=== PATIENT | female | born 1940 | race Caucasian/White ===

== ENCOUNTER 2016-06-03 04:06 | Emergency (ER) | payer MEDICARE, OTHER ==
[2016-06-03] MEDS ORDERED: NITROGLYCERIN/D5W 0 MG/0 ML RTUINJ IV ONE (04:13)
[2016-06-03] MEDS ORDERED: ETOMIDATE INJ/PF 20 MG/10 ML SDV IV ONE ×2 (04:14→05:22)
[2016-06-03] MEDS ORDERED: MIDAZOLAM 2 MG/2 ML INJ IV ONE (04:22)
[2016-06-03] MEDS ORDERED: MIDAZOLAM 2 MG/2 ML INJ ONE (04:25)
[2016-06-03] MEDS ORDERED: MIDAZOLAM HCL 100 ML IV ONE (04:26)
[2016-06-03 04:48] LABS: ABSOLUTE BASOPHILS # (AUTO) 0.1 10^3/uL (0.0-0.2); BASOPHILS % (AUTO) 0.6 % (0-2); EOSINOPHILS % (AUTO) 0.2 % (0-6); HEMATOCRIT 43.9 % (36.0-47.0); HEMOGLOBIN 14.1 g/dL (12.0-15.5); HGB HCT DIFFERENCE -1.6; LYMPHOCYTES % (AUTO) 26.2 % (13-45); MEAN CORPUSCULAR HEMOGLOBIN 29.2 pg (27.0-33.4); MEAN CORPUSCULAR HGB CONC 32.2 g/dL (32.0-36.0); MEAN CORPUSCULAR VOLUME 91 fl (80-97); MONOCYTES % (AUTO) 10.2 % (3-13); RED BLOOD COUNT 4.84 10^6/uL (3.72-5.28); RED CELL DISTRIBUTION WIDTH 14.9 % (11.5-14.0); SEGMENTED NEUTROPHILS % (AUTO) 62.8 % (42-78); WHITE BLOOD COUNT 19.2 10^3/uL (4.0-10.5)
[2016-06-03] MEDS ORDERED: ACETAMINOPHEN 650 MG SUPP.RECT PR ONE (04:54)
--- NOTE | 2016-06-03 04:55 | ER Document Report ---
ED General <CHARU MCCONNELL - Last Filed: 06/03/16 07:19> <SHYLA HOPSON - Last Filed: 06/03/16 13:06> - General Chief Complaint: Respiratory Distress Stated Complaint: RESPIRATORY DISTRESS Notes: Patient is a 75-year-old female who is brought in by the ambulance for severe respiratory distress. She is brought in on Cipro but admits. They said when they arrived at the house patient was kneeling against the bed and breathing very heavily. Patient is in severe respiratory distress and therefore cannot give much history. The mother said that the was at the house but was also not a good historian. (CHARU MCCONNELL) - Related Data Allergies/Adverse Reactions: Sulfa (Sulfonamide Antibiotics) Allergy (Verified 08/27/13 15:45) Past Medical History - Social History Smoking Status: Never Smoker Frequency of alcohol use: None Drug Abuse: None Family History: Reviewed & Not Pertinent - Past Medical History Cardiac Medical History: Reports: Hx Coronary Artery Disease, Hx Heart Attack, Hx Hypercholesterolemia, Hx Hypertension Denies: Hx DVT Endocrine Medical History: Reports: Hx Diabetes Mellitus Type 1, Hx Diabetes Mellitus Type 2 GI Medical History: Reports: Hx Gastroesophageal Reflux Disease Musculoskeltal Medical History: Reports Hx Arthritis Psychiatric Medical History: Reports: Hx Depression Past Surgical History: Reports: Hx Cardiac Catheterization - stents x2, Hx Orthopedic Surgery - right knee replacement - Immunizations Hx Diphtheria, Pertussis, Tetanus Vaccination: Yes Hx Pneumococcal Vaccination: 02/07/12 <CHARU MCCONNELL - Last Filed: 06/03/16 07:19> Review of Systems - Review of Systems -: Yes ROS unobtainable due to patient's medical condition - Patient unable to give history due to severe respiratory distress. <CHARU MCCONNELL - Last Filed: 06/03/16 07:19> Physical Exam <CHARU MCCONNELL - Last Filed: 06/03/16 07:19> <SHYLA HOPSON - Last Filed: 06/03/16 13:06> - Vital signs Vitals: Resp BP Pulse Ox 42 H 133/87 H 87 L 06/03/16 04:08 06/03/16 04:08 06/03/16 04:08 - Notes Notes: General Appearance: Well nourished, alert, cooperative, severe acute distress, no obvious discomfort. Very fatigued appearing. Vitals: reviewed, See vital signs table. Head: no swelling or tenderness to the head Eyes: PERRL, EOMI, Conjuctiva clear Mouth: No decreasd moisture Neck: Supple, no neck tenderness Lungs: Diffuse rales. Difficulty breathing. Accessory muscle use. Heart: Tachycardic rate, Regular rythm, No murmur, no rub Abdomen: Normal BS, soft, No rigidity, No abdominal tenderness, No guarding, no rebound, no abdominal masses, no organomegaly Extremities: strength 5/5 in all extremities, good pulses in all extremities, no swelling or tenderness in the extremities, no edema. Skin: warm, dry, appropriate color, no rash Neuro: Patient is very fatigued. Unable to perform a full neuro exam. She is able to move all extremities but is very weak in doing so. (CHARU MCCONNELL) Course - Laboratory Result Diagrams: 06/03/16 04:30 06/03/16 04:30 <CHARU MCCONNELL - Last Filed: 06/03/16 07:19> - Laboratory Result Diagrams: 06/03/16 07:50 06/03/16 10:55 <SHYLA HOPSON - Last Filed: 06/03/16 13:06> - Re-evaluation Re-evalutation: 06/03/16 05:04 Daughter is now arrived. Daughter informs me that the patient has not been having fevers at home. She says that only thing that she's notices that she complains of occasional jaw pain neck pain had pain and facial pain. Daughter says her headache, facial pain, jaw pain, neck pain has been ongoing for approximately one month. She is concerned that could be cardiac related being that she has a history of stents. She says despite this the patient has denied any chest pain to her. She has not been confused or altered. She says she was doing well until tonight when she started having difficulty breathing. Daughter has nothing else to add at this time. (CHARU MCCONNELL) 06/03/16 10:08 Patient signed out Patient's laboratory studies returned showing elevated blood glucose decreased bicarbonate with initial VBG showing some slight acidosis probably early DKA. Patient was to be having a non-STEMI with with sepsis due to urinary tract infection. Also with fluid overload. Patient has been stable on the ventilator. I did discuss with Dr. Dunn at [facility] per family request recommended patient start on a bicarbonate drip given a dose of Zosyn and also started on insulin drip. Due to the multiple drip medications patient will also have a central line placed by myself. Consent signed the family. Currently waiting on [facility] to give bed assignment update 06/03/16 11:02 Central line placed without difficulty 06/03/16 11:02 Repeat EKG still shows left bundle branch block with no sgarbossa criteria rate of 93 06/03/16 13:04 [facility] informed that they would not have a bed available for the next 12- 24 hours. Did discuss with [facility] as well however there ICU was full. Then at the family's discretion I did call [facility] and discussed with dr. herman. Patient was accepted in transfer. Patient still remains stable but critical condition on the ventilator. Patient will be airlifted tertiary care facility ( [facility]) - Vital Signs Vital signs: Temp Pulse Resp BP Pulse Ox 98.9 F 16 106/64 100 06/03/16 12:41 06/03/16 12:41 06/03/16 12:41 06/03/16 12:41 - Laboratory Laboratory results interpreted by me: 06/03/16 06/03/16 06/03/16 04:30 04:30 04:40 WBC 19.2 H RDW 14.9 H Seg Neutrophils % Lymphocytes % Absolute Neutrophils 12.0 H Absolute Lymphocytes 5.0 H Absolute Monocytes 2.0 H VBG pH 7.23 L Sodium Potassium Chloride Carbon Dioxide BUN Est GFR ( Amer) Est GFR (Non-Af Amer) Glucose POC Glucose Lactic Acid Direct Bilirubin AST ALT Creatine Kinase CK-MB (CK-2) NT-Pro-B Natriuret Pep Total Protein Albumin Urine Protein 100 H Urine Glucose (UA) >=500 H Urine Blood MODERATE H Ur Leukocyte Esterase MODERATE H 06/03/16 06/03/16 06/03/16 05:35 05:35 07:50 WBC RDW Seg Neutrophils % Lymphocytes % Absolute Neutrophils Absolute Lymphocytes Absolute Monocytes VBG pH Sodium 129.3 L Potassium 5.6 H Chloride 94 L Carbon Dioxide 20 L BUN 26 H Est GFR ( Amer) 55 L Est GFR (Non-Af Amer) 46 L Glucose 611 H* POC Glucose Lactic Acid 4.3 H Direct Bilirubin 0.6 H AST 142 H ALT 66 H Creatine Kinase 581 H CK-MB (CK-2) 10.10 H NT-Pro-B Natriuret Pep Total Protein 5.7 L Albumin 3.2 L Urine Protein Urine Glucose (UA) Urine Blood Ur Leukocyte Esterase 06/03/16 06/03/16 06/03/16 07:50 07:50 08:50 WBC 14.2 H RDW 14.5 H Seg Neutrophils % 80.8 H Lymphocytes % 8.3 L Absolute Neutrophils 11.5 H Absolute Lymphocytes Absolute Monocytes 1.5 H VBG pH Sodium Potassium Chloride Carbon Dioxide BUN Est GFR ( Amer) Est GFR (Non-Af Amer) Glucose POC Glucose > 550 H* Lactic Acid Direct Bilirubin AST ALT Creatine Kinase CK-MB (CK-2) NT-Pro-B Natriuret Pep 7520 H Total Protein Albumin Urine Protein Urine Glucose (UA) Urine Blood Ur Leukocyte Esterase 06/03/16 10:55 WBC RDW Seg Neutrophils % Lymphocytes % Absolute Neutrophils Absolute Lymphocytes Absolute Monocytes VBG pH Sodium 132.8 L Potassium 5.1 H Chloride 94 L Carbon Dioxide BUN 28 H Est GFR ( Amer) 56 L Est GFR (Non-Af Amer) 46 L Glucose 563 H* POC Glucose Lactic Acid Direct Bilirubin AST ALT Creatine Kinase CK-MB (CK-2) NT-Pro-B Natriuret Pep Total Protein Albumin Urine Protein Urine Glucose (UA) Urine Blood Ur Leukocyte Esterase - EKG Interpretation by Me Additional EKG results interpreted by me: 06/03/16 04:54 EKG is reviewed and interpreted by me. EKG shows sinus tachycardia with a rate of 135 bpm. Patient's has a left bundle branch block with appropriate ST segment changes. Left bundle branch block is old in comparison to previous EKG from 08/27/2013. [place] interval is within normal range. QRS duration QTC intervals are prolonged. (CHARU MCCONNELL) - Transfer of Care Notes: 06/03/16 07:19 Patient's cardiac enzymes are elevated. She has been complaining of jaw pain recently. daughter initially said that pain has been ongoing for a month but became much worse in last few days. She does have history of cardiac stents. Less stents were placed approximately 3 and half years ago in [place]. Daughter says she no longer follows with corporate travel consultant in [place]. She says she was followed with corporate travel consultant that was a new burn the pericardial just since moved to [place]. She does have a card with her and her stents were placed in her circumflex artery. She has 2 stents in the circumflex. She is on Plavix. I will place her on a heparin drip. Family denies any recent bleeding that they're aware of. They request her being transferred to [place] because all the family lives in [place] now. This is a vomiting does not have a bed and they would be okay with having her transferred to [place] again. She does have a fever. Her urinalysis shows infection of her urine. This is a catheter specimen a is an obvious infection. This likely is the cause of her fever. I suspect that her initial dyspnea and rales probably is related to potential heart failure which may be related to a non- STEMI. Her elevated cardiac enzymes also be related to hypoxemia. It's not clear exactly which came first. She is now comfortable on the ventilator. She' s had no further complications. CT scan of the head was obtained because of the headache for last month. CT scan was negative. Dictation of this chart was performed using voice recognition software; therefore, there may be some unintended grammatical errors. (CHARU MCCONNELL) Procedures - Central Line Right Internal jugular Central line lumen type: Double Anesthetic type: 1% Lidocaine mL's of anesthesia: 2 Ultrasound guided: Yes CM at insertion site: 20 Line secured with sutures: Yes Central line post-insertion: Blood return from lumens, Biopatch applied, Sutured , Sterile dressing applied, Position confirmed w/ CXR Number of attempts: 1 Complications: No <SHYLA HOPSON - Last Filed: 06/03/16 13:06> Critical Care Note <CHARU MCCONNELL - Last Filed: 06/03/16 07:19> - Critical Care Note Total time excluding time spent on procedures (mins): 50 <SHYLA HOPSON - Last Filed: 06/03/16 13:06> - Critical Care Note Comments: Time spent multiple evaluations patient in critical condition time excludes procedures performed. (SHYLA HOPSON) Discharge <CHARU MCCONNELL - Last Filed: 06/03/16 07:19> <SHYLA HOPSON - Last Filed: 06/03/16 13:06> - Discharge Clinical Impression: NSTEMI (non-ST elevated myocardial infarction) CHF, acute Qualifiers: Congestive heart failure type: unspecified congestive heart failure type Qualified Code(s): I50.9 - Heart failure, unspecified Sepsis Qualifiers: Sepsis type: sepsis due to unspecified organism Qualified Code(s): A41.9 - Sepsis, unspecified organism UTI (urinary tract infection) Qualifiers: Urinary tract infection type: acute cystitis Hematuria presence: without hematuria Qualified Code(s): N30.00 - Acute cystitis without hematuria DKA (diabetic ketoacidoses) Qualifiers: Diabetes mellitus type: type 1 Diabetes mellitus complication detail: without coma Qualified Code(s): E10.10 - Type 1 diabetes mellitus with ketoacidosis without coma Condition: Critical Disposition: [facility] Referrals: [facility] MD [Primary Care Provider] - Follow up as needed
[2016-06-03] MEDS: MIDAZOLAM HCL 100 ML IV PRN ×2 (04:59→12:21)
[2016-06-03 05:07] LABS: APPEARANCE,URINE TURBID; BILIRUBIN,URINE NEGATIVE (NEGATIVE); GLUCOSE, URINE >=500 mg/dL (NEGATIVE); KETONES,URINE NEGATIVE (NEGATIVE); LEUKOCYTE ESTERASE,URINE MODERATE (NEGATIVE); NITRITE,URINE NEGATIVE (NEGATIVE); PROTEIN,URINE 100 mg/dL (NEGATIVE); URINE SPECIFIC GRAVITY 1.017; UROBILINOGEN,URINE NEGATIVE mg/dL (<2.0)
[2016-06-03 05:09] LABS: VENOUS BLOOD BASE EXCESS -7.2 mmol/L; VENOUS BLOOD HCO3 20.6 mmol/L (20-32); VENOUS BLOOD PCO2 49.8 mmHg (35-63); VENOUS BLOOD PH 7.23 (7.30-7.42)
[2016-06-03] MEDS ORDERED: SUCCINYLCHOLINE CHLORIDE INJ 200 MG/10 ML VIAL IV ONE (05:22)
[2016-06-03] MEDS ORDERED: CEFTRIAXONE INJ 1000 MG VIAL IV ONE (05:42)
[2016-06-03 06:22] LABS: CREATINE KINASE MB 10.1 ng/mL (<4.55)
[2016-06-03 06:27] LABS: TROPONIN I 1.62 ng/mL
[2016-06-03] MEDS ORDERED: HEPARIN SOD (PORCINE) 1,000 UNIT/ML 10 ML VIAL IV ONE (07:16)
[2016-06-03] MEDS ORDERED: HEPARIN SODIUM,PORCINE/D5W 250 ML IV PRN (07:16)
[2016-06-03] MEDS ORDERED: ASPIRIN 300 MG SUPP, RECTAL PR ONE (07:29)
[2016-06-03 08:12] LABS: ABSOLUTE LYMPHOCYTES (AUTO) 1.2 10^3/uL (0.5-4.7); ABSOLUTE MONOCYTES (AUTO) 1.5 10^3/uL (0.1-1.4); ABSOLUTE NEUT (AUTO) 11.5 10^3/uL (1.7-8.2); BASOPHILS % (AUTO) 0.3 % (0-2); EOSINOPHILS % (AUTO) 0.1 % (0-6); HEMATOCRIT 39.8 % (36.0-47.0); HGB HCT DIFFERENCE -0.8; LYMPHOCYTES % (AUTO) 8.3 % (13-45); MEAN CORPUSCULAR HEMOGLOBIN 29.1 pg (27.0-33.4); MEAN CORPUSCULAR HGB CONC 32.7 g/dL (32.0-36.0); MEAN CORPUSCULAR VOLUME 89 fl (80-97); MONOCYTES % (AUTO) 10.5 % (3-13); RED BLOOD COUNT 4.48 10^6/uL (3.72-5.28); RED CELL DISTRIBUTION WIDTH 14.5 % (11.5-14.0); SEGMENTED NEUTROPHILS % (AUTO) 80.8 % (42-78); WHITE BLOOD COUNT 14.2 10^3/uL (4.0-10.5)
[2016-06-03 08:14] LABS: PARTIAL THROMBOPLASTIN TIME 31.4 SEC (23.5-35.8)
[2016-06-03 08:26] LABS: ALANINE AMINOTRANSFERASE 66 U/L (9-52); ALBUMIN 3.2 g/dL (3.5-5.0); ALKALINE PHOSPHATASE 77 U/L (38-126); ANION GAP 15 (5-19); ASPARTATE AMINO TRANSFERASE 142 U/L (14-36); BILIRUBIN,DIRECT 0.6 mg/dL (0.0-0.4); BILIRUBIN,TOTAL 1.1 mg/dL (0.2-1.3); BLOOD UREA NITROGEN 26 mg/dL (7-20); CALCIUM 8.7 mg/dL (8.4-10.2); CARBON DIOXIDE 20 mmol/L (22-30); CHLORIDE 94 mmol/L (98-107); CREATINE KINASE 581 U/L (30-135); CREATININE RESULT 1.16 mg/dL (0.52-1.25); POTASSIUM 5.6 mmol/L (3.6-5.0); SODIUM 129.3 mmol/L (137-145); TOTAL PROTEIN 5.7 g/dL (6.3-8.2)
[2016-06-03 08:38] LABS: GLUCOSE 611 mg/dL (75-110)
[2016-06-03] MEDS ORDERED: SUCCINYLCHOLINE CHLORIDE INJ 200 MG/10 ML VIAL ONE (09:15)
[2016-06-03] MEDS ORDERED: DEXTROSE 5%-WATER 1000 ML 1,000 ML with SODIUM BICARBONATE 150 MEQ IV PRN ×2 (09:34)
[2016-06-03] MEDS ORDERED: PIPERACILLIN/TAZOBACTAM 4.5 GM VIAL IV ONE (09:34)
[2016-06-03] MEDS ORDERED: DEXTROSE 40% GEL 15 GM TUBE PO PRN (09:35)
[2016-06-03] MEDS ORDERED: GLUCAGON,HUMAN RECOMB 1 MG INJ IM PRN (09:35)
[2016-06-03] MEDS ORDERED: DEXTROSE 50%-WATER 25 GM/50 ML DISP.SYRIN IV PRN ×2 (09:35)
[2016-06-03] MEDS ORDERED: NORMAL SALINE 100 ML with INSULIN REGULAR, HUMAN 100 UNIT IV PRN ×2 (09:35)
--- NOTE | 2016-06-03 09:39 | EKG REPORT ---
SEVERITY:- ABNORMAL ECG - SINUS TACHYCARDIA LEFT BUNDLE BRANCH BLOCK CONSIDER SLOW V TACH : Confirmed by: Nesha Leong 03-Jun-2016 09:38:15
[2016-06-03] MEDS ORDERED: NORMAL SALINE 500 ML IV ONE (10:11)
[2016-06-03] MEDS ORDERED: SODIUM BICARBONATE 8.4% INJ 50 MEQ/50 ML DISP.SYRIN ONE ×3 (11:06→11:42)
[2016-06-03] MEDS ORDERED: INSULIN REG, HUMAN 100 UNIT/ML 3 ML VIAL (PYX) ONE ×2 (11:27→12:19)
[2016-06-03 11:41] LABS: ANION GAP 17 (5-19); BLOOD UREA NITROGEN 28 mg/dL (7-20); CALCIUM 8.5 mg/dL (8.4-10.2); CARBON DIOXIDE 22 mmol/L (22-30); CHLORIDE 94 mmol/L (98-107); CREATININE RESULT 1.15 mg/dL (0.52-1.25); POTASSIUM 5.1 mmol/L (3.6-5.0); SODIUM 132.8 mmol/L (137-145)
[2016-06-03 12:02] LABS: GLUCOSE 563 mg/dL (75-110)
[2016-06-03 12:49] VITALS: BP 106/64
--- NOTE | 2016-06-03 19:38 | EKG REPORT ---
SEVERITY:- ABNORMAL ECG - SINUS RHYTHM LEFT BUNDLE BRANCH BLOCK : Confirmed by: Nesha Leong 03-Jun-2016 19:36:50
== END 2016-06-03 14:30 | disposition short-term general hospital (02) ==
LOC: ER 04:06
DX: A41.9 Sepsis, unspecified organism (principal); N30.00 Acute cystitis without hematuria; I21.4 Non-ST elevation (NSTEMI) myocardial infarction; I11.0 Hypertensive heart disease with heart failure; I50.9 Heart failure, unspecified; E10.10 Type 1 diabetes mellitus with ketoacidosis without coma; I25.10 Atherosclerotic heart disease of native coronary artery without angina pectoris; I25.2 Old myocardial infarction; R68.84 Jaw pain; M54.2 Cervicalgia; R51 Headache; R50.9 Fever, unspecified; I44.7 Left bundle-branch block, unspecified; Z88.2 Allergy status to sulfonamides; Z98.61 Coronary angioplasty status
CPT/HCPCS: 93005; 99291; 96365; 96366; 96367; 96368; 36415; 87040; 87086; 82553; 82962; 82550; 85025; 85610; 85730; 87088; 80048; 80053; 81001; 84484; 87186; 82803; 83605; 83880; 71010; 70450; 93010; 36556; C1751; A9270 ×2; J2250 ×2; J1644 ×2; J3490 ×2; J0330; J0696; J7060; J2543; 94002